=== PATIENT | female | born 1945 ===

== ENCOUNTER 2019-08-20 11:38 | Emergency (ER) | payer OTHER ==
[~2019-08-20] VITALS: Ht 170.2 cm; Wt 65.8 kg
[~2019-08-20 11:38] MED LIST: CATAFLAM50 MG PO; ORPH100T PO
[2019-08-20] MEDS ORDERED: HORIZANT300 MG (11:56)
[2019-08-20] MEDS ORDERED: LEVOTHYROXINE25 MCG (11:57)
[2019-08-20] MEDS ORDERED: NAPROXEN500 MG PO (12:40)
[2019-08-20] MEDS ORDERED: DIAZEPAM10 MG PO (12:40)
== END 2019-08-20 12:59 | disposition home or self-care (01) ==
LOC: ER 11:38
DX: M54.5 Low back pain (principal)

== ENCOUNTER 2019-10-27 13:41 | Emergency (ER) | payer OTHER ==
[~2019-10-27] VITALS: Ht 167.6 cm; Wt 64.4 kg
[~2019-10-27 13:41] MED LIST changes: +DIAZEPAM10 MG PO; +HORIZANT300 MG; +LEVOTHYROXINE25 MCG; +NAPROXEN500 MG PO
[2019-10-27] MEDS ORDERED: FOSAMAX70 MG (13:58)
[2019-10-27] MEDS ORDERED: DICLOFENAC SODI75 MG PO (14:54)
== END 2019-10-27 15:21 | disposition home or self-care (01) ==
LOC: ER 13:41
DX: M54.5 Low back pain (principal)

== ENCOUNTER 2020-11-21 10:00 | Emergency (ER) | payer OTHER ==
[~2020-11-21] VITALS: Ht 167.6 cm; Wt 65.8 kg
[~2020-11-21 10:00] MED LIST changes: +DICLOFENAC SODI75 MG PO; +FOSAMAX70 MG
[2020-11-21] MEDS ORDERED: VOLTAREN100 GM TOP (15:01)
[2020-11-21] MEDS ORDERED: ORPHENADRINE C100 MG PO (15:01)
== END 2020-11-21 15:42 | disposition home or self-care (01) ==
LOC: ER 10:00
DX: S16.1XXA Strain of muscle, fascia and tendon at neck level, initial encounter (principal); S00.83XA Contusion of other part of head, initial encounter; R55 Syncope and collapse; G20 Parkinson's disease; W18.09XA Striking against other object with subsequent fall, initial encounter; Y93.H2 Activity, gardening and landscaping; Y92.017 Garden or yard in single-family (private) house as the place of occurrence of the external cause; Y99.8 Other external cause status

== ENCOUNTER 2022-01-17 19:24 | Emergency (ER) | payer OTHER ==
[~2022-01-17] VITALS: Ht 167.6 cm; Wt 67.1 kg
[~2022-01-17 19:24] MED LIST changes: +ORPHENADRINE C100 MG PO; +VOLTAREN100 GM TOP
[2022-01-17] MEDS ORDERED: ORPHENADRINE C100 MG PO (22:45)
== END 2022-01-17 23:11 | disposition home or self-care (01) ==
LOC: ER 19:24
DX: M62.830 Muscle spasm of back (principal)

== ENCOUNTER 2022-03-23 07:20 | Emergency (ER) | payer OTHER ==
[~2022-03-23] VITALS: Ht 167.6 cm; Wt 67.1 kg
== END 2022-03-23 10:59 ==
LOC: ER 07:20
DX: R51.9 Headache, unspecified (principal); G20 Parkinson's disease; G47.30 Sleep apnea, unspecified; E03.9 Hypothyroidism, unspecified

== ENCOUNTER 2022-10-06 09:21 | Emergency (ER) | payer OTHER ==
[~2022-10-06] VITALS: Ht 167.6 cm; Wt 67.1 kg
[2022-10-06] MEDS ORDERED: TOPROL XL25 M1 (09:46)
[2022-10-06] MEDS ORDERED: ECOTRIN81 MG (09:47)
[2022-10-06] MEDS ORDERED: LEVOTHYROXINE25 MCG (09:47)
[2022-10-06] MEDS ORDERED: CIPRO500 MG PO (13:08)
[2022-10-06] MEDS ORDERED: DULCOLAX5 MG PO (13:08)
== END 2022-10-06 13:31 | disposition home or self-care (01) ==
LOC: ER 09:21
DX: K59.00 Constipation, unspecified (principal); N39.0 Urinary tract infection, site not specified; E03.9 Hypothyroidism, unspecified; G20 Parkinson's disease; G47.30 Sleep apnea, unspecified